=== PATIENT | male | born 1945 | race Caucasian/White ===

== ENCOUNTER → 2016-08-15 14:07 | Outpatient (CLI) | payer MEDICARE ==
[2015-11-29 11:51] VITALS: BMI 26.8
[~2016-08-15 14:07] MED LIST: BAYER CHEWABLE81 MG PO; DIOVAN160 MG PO; HYDROCHLOROTH12.5 M1 PO; HYTRIN10 MG PO; ORAPRED ODT10 MG/TAB PO; PRILOSEC20 MG PO; TRIGLIDE160 MG PO; VITAMIN B-121000 MC3; [UNRECOGNIZED DRUG - OTHER]; [UNRECOGNIZED DRUG - OTHER]
== END | disposition home or self-care (01) ==
LOC: D.US 14:07
DX: I65.23 Occlusion and stenosis of bilateral carotid arteries (principal)